=== PATIENT | female | born 1945 | race Caucasian/White ===

== ENCOUNTER 2019-05-03 20:03 | Emergency (ER) | payer MEDICARE, BC ==
--- NOTE | 2019-05-03 20:55 | RAD ---
THREE VIEWS OF THE LEFT HAND: 05/03/19 COMPARISON: None. HISTORY: Hand pain. FINDINGS: There are severe degenerative changes with radiocarpal joint space narrowing, joint space narrowing i nvolving the distal radioulnar joint, and severe joint space narrowing and subchondral sclerosis at t he first carpometacarpal joint. There is also severe degenerative change with central erosion at the second, third and fourth proximal interphalangeal joints as well as the second, third, and fourth dis won interphalangeal joints. Findings suggest erosive osteoarthritis. No displaced fracture or disloca tion is evident. There is a [id number] appearance of the central erosions at the second, third and fourth proximal interphalangeal joints. IMPRESSION: Severe degenerative change with findings suspicious for inflammatory arthropathy, such as erosive ost eoarthritis. Psoriatic arthritis in the proper clinical setting cannot be excluded. POS: [facility]
[2019-05-03] MEDS ORDERED: predniSONE 20 MG TAB ONE (21:26)
== END 2019-05-03 21:35 | disposition home or self-care (01) ==
LOC: MADERS 20:03
DX: M19.042 Primary osteoarthritis, left hand (principal); M19.032 Primary osteoarthritis, left wrist; E78.00 Pure hypercholesterolemia, unspecified
CPT/HCPCS: J7512

== ENCOUNTER 2022-06-19 07:17 | Emergency (ER) | payer MEDICARE, BC ==
[2022-06-19 07:59] LABS: Bilirubin Negative (Negative); Blood, Urine Negative (Negative); Clarity Clear (Clear); Glucose, Urine (Dipstick) Negative (Negative); Ketone, Urine Negative (Negative); Leukocyte Small (Negative); Nitrite Negative (Negative); Protein, Urine (Dipstick) Negative (Neg-Trace); Urobilinogen 0.2 mg/dL (Less than 2)
[2022-06-19 08:03] LABS: Bacteria/HPF Rare-Few HPF (None Seen); RBC/HPF 0-3 HPF (0-3); Squamous Epithelial 0-3 HPF (0-3); WBC/HPF 0-3 HPF (0-3)
[2022-06-19] MEDS ORDERED: Phenazopyridine HCl 95 MG TAB ONE (09:11)
[2022-06-19] MEDS ORDERED: Cephalexin 500 MG CAP ONE (09:12)
== END 2022-06-19 09:13 | disposition home or self-care (01) ==
LOC: MADERS 07:17
DX: N39.0 Urinary tract infection, site not specified (principal)
CPT/HCPCS: 81003; 81015; 87086; 99283

== ENCOUNTER 2022-12-24 22:32 | Emergency (ER) | payer MEDICARE, BC ==
[2022-12-24 22:51] LABS: Bilirubin Small (Negative); Blood, Urine Negative (Negative); Clarity Clear (Clear); Glucose, Urine (Dipstick) 100 mg/dL (Negative); Ketone, Urine Trace mg/dL (Negative); Leukocyte Large (Negative); Nitrite Positive (Negative); Protein, Urine (Dipstick) 30 mg/dL (Neg-Trace)
[2022-12-24 22:53] LABS: Specific Gravity, Urine 1.015 (1.002-1.036)
[2022-12-24 23:03] LABS: Bacteria/HPF Rare-Few HPF (None Seen); CAUTI Indications for Culture Dysuria,urgency,freq; RBC/HPF 0-3 HPF (0-3)
[2022-12-24 23:04] LABS: Urine Culture Reflex No No
== END 2022-12-24 23:18 | disposition home or self-care (01) ==
LOC: MADERS 22:32
DX: N30.00 Acute cystitis without hematuria (principal); I10 Essential (primary) hypertension; Z79.899 Other long term (current) drug therapy
CPT/HCPCS: 81001; 87086; 99283

== ENCOUNTER 2025-04-18 14:04 | Emergency (ER) | payer MEDICARE, BC | END 2025-04-18 15:06 | disposition home or self-care (01) | LOC: MADERS 14:04 | DX: S60.221A Contusion of right hand, initial encounter (principal); I10 Essential (primary) hypertension; W23.1XXA Caught, crushed, jammed, or pinched between stationary objects, initial encounter | CPT/HCPCS: 99283 ==